=== PATIENT | male | born 1995 | race African-American/Black ===

== ENCOUNTER 2016-08-16 04:20 | Emergency (ER) | payer OTHER ==
[~2016-08-16] VITALS: Ht 188 cm; Wt 94.0 kg
[2016-08-16 04:33] VITALS: TEMP 36.6; Ht 188 cm; Wt 94.0 kg
[2016-08-16] MEDS ORDERED: OPTIRAY 320 IV PRN (05:15)
[2016-08-16 05:18] LABS: HEMATOCRIT 39.3 % (42-52); MEAN CELL VOLUME 82.9 fL (80-100); MEAN CORPUSCULAR HEMOGLOBIN 29.3 pg (25-34); MEAN CORPUSCULAR HGB CONC 35.4 g/dl (32-36); MEAN PLATELET VOLUME 9.7 fL (7.4-10.4); PLATELET COUNT 220 K/uL (130-400); RED BLOOD COUNT 4.74 M/uL (4.7-6.1); WHITE BLOOD COUNT 4.67 K/uL (4.8-10.8)
[2016-08-16 05:39] LABS: BUN/CREATININE RATIO 10.2 (10-20); CALCIUM 8.8 mg/dl (8.5-10.1); POTASSIUM 3.2 mmol/L (3.5-5.1)
[2016-08-16 07:22] LABS: URINE APPEARANCE CLEAR (CLEAR); URINE BILIRUBIN NEG (NEG); URINE COLOR YELLOW; URINE NITRITE NEG (NEG); URINE PH 6.5 (4.5-7.5); URINE SPECIFIC GRAVITY > 1.045 (1.000-1.030); UROBILINOGEN NEG (NEG)
[2016-08-16 07:27] LABS: MANUAL MICROSCOPIC REQUIRED? NO; REVIEW REQ? NO
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
[2016-08-16 08:05] LABS: BENZODIAZEPINE, URINE POS (NEG); COCAINE,URINE NEG (NEG); PHENCYCLIDINE, URINE NEG (NEG)
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
[2016-08-16 08:30] VITALS: BP 127/65; PULSE 83; O2SAT 96
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
[2016-08-19 07:13] LABS: HYDROXYETHYLFLURAZEPAM CONF NEGATIVE NG/ML (CUTOFF=50); HYDROXYMIDAZOLAM NEGATIVE NG/ML (CUTOFF=50); HYDROXYTRIAZOLAM CONF NEGATIVE NG/ML (CUTOFF=50); TEMAZEPAM CONF NEGATIVE NG/ML (CUTOFF=50)
== END 2016-08-16 08:18 | disposition home or self-care (01) ==
LOC: C.EDB 04:22
DX: F10.129 Alcohol abuse with intoxication, unspecified (principal); F12.10 Cannabis abuse, uncomplicated; V89.9XXA Person injured in unspecified vehicle accident, initial encounter; Y90.5 Blood alcohol level of 100-119 mg/100 ml

== ENCOUNTER → 2016-08-16 | Outpatient (CLI) | payer OTHER | END | disposition home or self-care (01) | LOC: C.LAB 04:25 | DX: Z02.83 Encounter for blood-alcohol and blood-drug test (principal) ==